=== PATIENT | female | born 1995 | race Caucasian/White ===

== ENCOUNTER → 2020-07-19 10:56 | Outpatient (CLI) | payer BC, SELFPAY ==
--- NOTE | 2020-07-19 11:18 | ECG_ITS ---
APPROVED REPORT Exam: Resting ECG HR:63 bpm ECG Measurements Heart Rate 63 AXES GA 148 P 44 QRSd 84 QRS 70 QT 436 T 51 QTc 446 Conclusion Normal sinus rhythm with sinus arrhythmia Normal ECG Electronically signed by : Jairo Fallon, 07/19/2020 20:35:12
== END ==
PROVIDERS: PCP Family Medicine; Visit Provider Family Medicine
DX: R00.2 Palpitations (principal)
CPT/HCPCS: 93005